=== PATIENT | male | born 1950 | race Caucasian/White ===

== ENCOUNTER 2019-04-22 14:27 | Emergency (ER) | payer OTHER ==
[2019-04-22] MEDS ORDERED: FUROSEMIDE 10 MG/ML 4ML VIAL ONE (15:44)
[2019-04-22 15:48] LABS: BASOPHILS % (AUTO) 0.8 % (0.0-5.0); EOSINOPHILS % (AUTO) 5.5 % (0.0-8.0); HEMATOCRIT 37.4 % (42-54); LYMPHOCYTES % (AUTO) 20.8 % (21.0-51.0); MEAN CORPUSCULAR HEMOGLOBIN 28.9 pg (27.0-33.0); MEAN CORPUSCULAR HGB CONC 32.4 g/dL (32.0-36.0); MEAN CORPUSCULAR VOLUME 89.3 fL (79-99); MONOCYTES % (AUTO) 7.1 % (3.0-13.0); NEUTROPHILS % (AUTO) 65.1 % (40.0-77.0); PLATELET COUNT (AUTO) 267 K/uL (130-400); RED BLOOD CELL COUNT(AUTO) 4.19 MIL/uL (4.50-6.20); RED CELL DISTRIBUTION WIDTH 14.1 % (11.0-15.5); WHITE BLOOD COUNT (AUTO) 9.6 K/uL (4.8-10.8)
[2019-04-22 15:56] LABS: APPEARANCE,URINE Clear (CLEAR); BILIRUBIN,URINE Negative (NEGATIVE); COLOR,URINE Yellow (YELLOW); GLUCOSE, URINE (UA) >=1000 mg/dL (NEGATIVE); KETONES,URINE Negative (NEGATIVE); LEUKOCYTE ESTERASE ,URINE Negative (NEGATIVE); NITRATE,URINE Negative (NEGATIVE); OCCULT BLOOD,URINE Negative (NEGATIVE); PH,URINE 7.5 (5.0-8.0); PROTEIN,URINE Negative (NEGATIVE)
[2019-04-22 15:58] LABS: POTASSIUM 4.8 mmol/L (3.5-5.1)
[2019-04-22 16:02] LABS: ALBUMIN 3.8 g/dL (3.5-5.0); BILIRUBIN,DIRECT 0.2 mg/dL (0.0-0.3); BILIRUBIN,TOTAL 0.7 mg/dL (0.2-1.0); TOTAL PROTEIN, SERUM 6.5 g/dL (6.0-8.3)
[2019-04-22 16:06] LABS: BACTERIA,URINE None Seen /HPF (None Seen); RBC,URINE None Seen /HPF (0-1); SQUAMOUS EPITHELIAL CELL,UR None Seen /HPF (0-2); WBC,URINE 0-1 /HPF (0-1)
[2019-04-22 16:52] LABS: B-TYPE NATRIURETIC PEPTIDE 68 pg/mL (0-100)
== END 2019-04-22 19:54 | disposition home or self-care (01) ==
LOC: EDH 14:27
DX: R60.0 Localized edema (principal); E11.9 Type 2 diabetes mellitus without complications; I10 Essential (primary) hypertension; F31.9 Bipolar disorder, unspecified
CPT/HCPCS: 36415; 80048; 80076; 81001; 83880; 84484; 85025; 85378; 93005; 93970; 96374; 99285; J1940

== ENCOUNTER 2019-07-31 11:54 | Inpatient (IN) | payer OTHER ==
[~2019-07-31] VITALS: Ht 180.3 cm; Wt 102.1 kg
[2019-07-31 12:24] LABS: APPEARANCE,URINE Clear (CLEAR); BILIRUBIN,URINE Negative (NEGATIVE); COLOR,URINE Yellow (YELLOW); GLUCOSE, URINE (UA) >=1000 mg/dL (NEGATIVE); KETONES,URINE Negative (NEGATIVE); LEUKOCYTE ESTERASE ,URINE Negative (NEGATIVE); NITRATE,URINE Negative (NEGATIVE); OCCULT BLOOD,URINE Negative (NEGATIVE); PH,URINE 6.5 (5.0-8.0); PROTEIN,URINE Negative (NEGATIVE); UROBILINOGEN,URINE 0.2 mg/dL (0.2-1.0)
[2019-07-31 12:28] LABS: BASOPHILS % (AUTO) 0.6 % (0.0-5.0); EOSINOPHILS % (AUTO) 2.1 % (0.0-8.0); HEMATOCRIT 42.7 % (42-54); LYMPHOCYTES % (AUTO) 12.6 % (21.0-51.0); MEAN CORPUSCULAR HGB CONC 32.6 g/dL (32.0-36.0); MONOCYTES % (AUTO) 7.7 % (3.0-13.0); NEUTROPHILS % (AUTO) 76.1 % (40.0-77.0); PLATELET COUNT (AUTO) 227 K/uL (130-400)
[2019-07-31] MEDS ORDERED: KETOROLAC TROMETHAMINE 15MG/ML ONE (12:28)
[2019-07-31] MEDS ORDERED: FLUCONAZOLE 100 MG TAB ONE (12:28)
[2019-07-31 12:37] LABS: BACTERIA,URINE None Seen /HPF (None Seen); RBC,URINE None Seen /HPF (0-1); SQUAMOUS EPITHELIAL CELL,UR 0-2 /HPF (0-2); WBC,URINE None Seen /HPF (0-1); YEAST,URINE BUDDING Moderate /HPF (None Seen)
[2019-07-31 12:41] LABS: CREATININE 1.3 mg/dL (0.5-1.5)
[2019-07-31 12:43] LABS: ALBUMIN 2.6 g/dL (3.5-5.0); BILIRUBIN,TOTAL 0.3 mg/dL (0.2-1.0); TOTAL PROTEIN, SERUM 5.9 g/dL (6.0-8.3)
[2019-07-31] MEDS ORDERED: INSULIN HUMULIN R 100 UNIT/ML 3ML ONE (12:55)
[2019-07-31] MEDS ORDERED: SODIUM CHLORIDE 0.9% 1000ML 1,000 ML IV ONE ×3 (12:55→15:11)
[2019-07-31 13:09] LABS: PHOSPHORUS 3.2 mg/dL (2.5-4.9)
[2019-07-31] MEDS ORDERED: ONDANSETRON HCL 4 MG/2 ML VIAL IV PRN (14:45)
[2019-07-31] MEDS ORDERED: SODIUM CHLORIDE 0.9% 1000ML 1,000 ML IV SCH (14:45)
[2019-07-31] MEDS ORDERED: NITROGLYCERIN 0.4 MG SL TAB SL PRN (14:45)
[2019-07-31] MEDS ORDERED: ACETAMINOPHEN 325 MG TAB PO PRN (14:45)
[2019-07-31] MEDS ORDERED: LORAZEPAM 2 MG/ML 1 ML VIAL IVP ONE (15:15)
[2019-07-31] MEDS ORDERED: CEFAZOLIN SODIUM 1 GM VIAL ONE (15:16)
[2019-07-31] MEDS ORDERED: LORAZEPAM 2 MG/ML 1 ML VIAL ONE (15:19)
[2019-07-31] MEDS ORDERED: INSULIN HUMULIN R 100 UNIT/ML 3ML SQ SCH (18:00)
[2019-07-31 18:08] VITALS: BP 163/77
[2019-07-31] MEDS ORDERED: VANCOMYCIN PROTOCOL PER PHARMACY IV SCH (18:30)
[2019-07-31 19:08] LABS: HEMOGLOBIN A1C 13.9 % (4.0-6.0)
[2019-07-31 19:09] LABS: CREATININE 0.9 mg/dL (0.5-1.5); POTASSIUM 4.2 mmol/L (3.5-5.1)
[2019-07-31] MEDS ORDERED: COMPOUND IV REFRIGERATED 1 EACH IVSOLN MISC PRN (19:45)
[2019-07-31 20:00] VITALS: BP 159/83
--- NOTE | 2019-07-31 20:07 | NUR ---
KENRICK Chambers Director Instructional Material,pt states he 's hungry.No diet ordered.
[2019-07-31] MEDS: FAMOTIDINE/PF 20 MG/2 ML VIAL IV SCH (20:50)
[2019-07-31] MEDS: INSULIN GLARGINE 100 UNITS/ML 10 ML VIAL SQ SCH (20:51)
[2019-07-31] MEDS: INSULIN HUMULIN R 100 UNIT/ML 3ML SQ SCH ×2 (20:52→22:13)
[2019-07-31] MEDS ORDERED: KETOCONAZOLE 15 GM CREAM.GM. TP SCH (21:00)
[2019-07-31] MEDS ORDERED: TERBINAFINE HCL 15 GM TUBE TP SCH (21:00)
[2019-07-31 21:15] LABS: CREATININE 0.9 mg/dL (0.5-1.5); POTASSIUM 3.7 mmol/L (3.5-5.1)
[2019-07-31] MEDS: TERBINAFINE HCL 15 GM TUBE TP SCH (21:21)
[2019-07-31] MEDS: VANCOMYCIN 1.5 GM in SODIUM CHLORIDE 0.9% 250 ML IV SCH ×2 (21:23→21:27)
--- NOTE | 2019-07-31 22:06 | NUR ---
BLOOD SUGAR Pt.s blood sugar 380,pt just had his clear liquids.LAntus and sliding scale given.
[2019-07-31] MEDS: CEFAZOLIN SODIUM 1 GM VIAL IVP SCH (23:29)
[2019-07-31] MEDS: FLUCONAZOLE 200 MG/NS 100 ML 100 ML IV SCH (23:29)
[2019-08-01] VITALS (7 sets, daily range): BP systolic 132–160; BP diastolic 63–87
[2019-08-01] MEDS: INSULIN HUMULIN R 100 UNIT/ML 3ML SQ SCH ×8 (00:35→21:57)
[2019-08-01 01:21] LABS: CREATININE 0.8 mg/dL (0.5-1.5); POTASSIUM 3.5 mmol/L (3.5-5.1)
[2019-08-01] MEDS: SODIUM CHLORIDE 0.9% 1000ML 1,000 ML IV SCH ×3 (03:45→20:44)
--- NOTE | 2019-08-01 05:14 | NUR ---
REFUSED Pt refusing blood drawn,states,"I'm doing fine,I came in becaused my blood sugar was high,now it's 83,I'm fine now".Explained to him need for test,labs.He said he did'nt want it.
[2019-08-01] MEDS: CEFAZOLIN SODIUM 1 GM VIAL IVP SCH ×3 (05:50→21:58)
[2019-08-01] MEDS: FAMOTIDINE/PF 20 MG/2 ML VIAL IV SCH ×2 (08:34→20:37)
[2019-08-01] MEDS: VANCOMYCIN 1.5 GM in SODIUM CHLORIDE 0.9% 250 ML IV SCH ×2 (08:34→20:40)
[2019-08-01] MEDS: ENOXAPARIN SODIUM 30 MG/0.3 ML SQ SCH (08:35)
[2019-08-01] MEDS: TERBINAFINE HCL 15 GM TUBE TP SCH ×2 (08:49→20:49)
[2019-08-01] MEDS ORDERED: FLUCONAZOLE 200 MG/NS 100 ML 100 ML IV SCH (09:00)
--- NOTE | 2019-08-01 10:08 | NUR ---
CONSULT CALLED INTO DR. MENDEZ OFFICE
--- NOTE | 2019-08-01 10:12 | NUR ---
SPOKE WITH DR. CHESTER MADE AWARE OF NEW CONSULT. WILL SEE PATIENT LATER TODAY
--- NOTE | 2019-08-01 11:17 | NUR ---
INITIAL Patient lives at [facility], [phone]. Emergency contact is sister, Nimco Pedro, [phone] and brother in law, Rigoberto Pedro, [phone]. No home services. DME: nebulizer, BPM, shower chair. Patient is able to complete ADL's independent but as per sister, has required assistance recently. ARACELI spoke to Sanchez Fulton, front desk specialist of [facility] and he stated that patient has refused to bathe for the past 5 months. Patient is able to drive. PCP is Dr. Flo Moy. Pharmacy is [facility] or [facility] DCP is back to [facility] when ready for discharge. Sister would like patient to go to shelter for additional care. SW attempted to contact [facility] Journal[facility] to verify if patient is Service Connected but there was no answer. SW will follow up. Addendum: 08/01/19 at 1140 by ANNELIESE DHILLON Amended: Links added. Addendum: 08/01/19 at 1152 by ANNELIESE KOWALSKI SS Correction on MD and pharmacy Patient's PCP is [facility] and patient only uses [facility] as per sister.
--- NOTE | 2019-08-01 12:28 | NUR ---
SPOKE WITH DR. MENDEZ STATED PATIENT CAN BE SEEN AN OUTPATIENT. DR. KAMARA MADE AWARE
--- NOTE | 2019-08-01 13:24 | NUR ---
RD NOTIFICATION Pt admitted for Hyperglycemia, Hx of DM. Pt tolerating GI Soft bland diet with no report of GI distress, Good PO intake. Recommend to continue current diet order. RD provided Diabetes nutrition education. Pt reports cough when drinking cold beverages. RD to continue to monitor. Please notify RD as additional nutrition concerns arise. Thank you. Addendum: 08/01/19 at [address] RD Amended: Links added.
--- NOTE | 2019-08-01 13:27 | NUR ---
NUTRITION EDUCATION ALFA provided Diabetes nutrition education to Pt. ALFA provided reference materials and handouts. ALFA answered all Pt questions. Pt verbalized understanding. Addendum: 08/01/19 at [address] Amended: Links added.
--- NOTE | 2019-08-01 13:53 | NUR ---
[facility] Service Connection SW contacted [facility] Inpatient Rough Rice Grader, Nani Cage, to verify that patient is Service Connected for SNF. She informed SW that patient is Service Connected. MANOLO, Rebecca Wilson, made aware.
--- NOTE | 2019-08-01 15:59 | NUR ---
STATUS SECONDARY REVIEW DONE. UNABLE TO FIND INPT IQ CRITERIA. NOTIFIED CM.
[2019-08-01] MEDS ORDERED: INSLAN SQ (17:05)
[2019-08-01] MEDS ORDERED: ALOG25TA2 PO (17:05)
[2019-08-01] MEDS ORDERED: ATOR10 PO (17:05)
[2019-08-01] MEDS ORDERED: FURO20TA4 PO (17:05)
[2019-08-01] MEDS ORDERED: LITH300C3 PO (17:05)
[2019-08-01] MEDS ORDERED: ASPI-556 PO (17:05)
[2019-08-01] MEDS ORDERED: PANT40TA54 PO (17:05)
[2019-08-01] MEDS: GUAIFENESIN-DM 200/20 MG 10 ML PO PRN (20:37)
[2019-08-01] MEDS: FLUCONAZOLE 200 MG/NS 100 ML 100 ML IV SCH ×2 (20:39→21:55)
[2019-08-01] MEDS: INSULIN GLARGINE 100 UNITS/ML 10 ML VIAL SQ SCH (20:42)
[2019-08-02] MEDS: GUAIFENESIN-DM 200/20 MG 10 ML PO PRN ×2 (03:30→10:01)
[2019-08-02] MEDS: SODIUM CHLORIDE 0.9% 1000ML 1,000 ML IV SCH ×3 (03:30→21:13)
--- NOTE | 2019-08-02 03:51 | NUR ---
COUGH Pt c/o dry cough,on Droplet precautions.Medicated with Guiafenessin.
[2019-08-02 04:29] VITALS: BP 169/83
--- NOTE | 2019-08-02 05:08 | NUR ---
REFUSED Pt refused lab drawn again this am.Explained labs ordered per .
[2019-08-02] MEDS: CEFAZOLIN SODIUM 1 GM VIAL IVP SCH ×3 (05:56→23:00)
[2019-08-02] MEDS: INSULIN HUMULIN R 100 UNIT/ML 3ML SQ SCH ×7 (06:23→21:07)
[2019-08-02 07:30] VITALS: BP 153/76
[2019-08-02 08:25] LABS: EOSINOPHILS % (AUTO) 4.2 % (0.0-8.0); HEMATOCRIT 43.5 % (42-54); MEAN CORPUSCULAR HEMOGLOBIN 28.6 pg (27.0-33.0); MEAN CORPUSCULAR HGB CONC 32.6 g/dL (32.0-36.0); MEAN CORPUSCULAR VOLUME 87.7 fL (79-99); MONOCYTES % (AUTO) 7.8 % (3.0-13.0); NEUTROPHILS % (AUTO) 66.1 % (40.0-77.0); PLATELET COUNT (AUTO) 211 K/uL (130-400); RED BLOOD CELL COUNT(AUTO) 4.96 MIL/uL (4.50-6.20); RED CELL DISTRIBUTION WIDTH 13.2 % (11.0-15.5); WHITE BLOOD COUNT (AUTO) 6.9 K/uL (4.8-10.8)
[2019-08-02 08:49] LABS: BILIRUBIN,TOTAL 0.3 mg/dL (0.2-1.0); CREATININE 0.8 mg/dL (0.5-1.5); POTASSIUM 3.6 mmol/L (3.5-5.1)
[2019-08-02 08:50] LABS: ALBUMIN 2.1 g/dL (3.5-5.0); TOTAL PROTEIN, SERUM 5.3 g/dL (6.0-8.3)
--- NOTE | 2019-08-02 09:20 | NUR ---
DR. KAMARA CALLED RE; ANTIBIOTICS PT IS ON 3 ANTIBIOTICS ANY PLANS TO D/C ONE OF THEM? STATES CONTINUE ALL FOR TODAY AND I WILL REVIEW THEM TOMORROW AND I WILL DECIDE.
[2019-08-02] MEDS: FAMOTIDINE/PF 20 MG/2 ML VIAL IV SCH ×2 (09:46→21:04)
[2019-08-02] MEDS: VANCOMYCIN 1.5 GM in SODIUM CHLORIDE 0.9% 250 ML IV SCH ×2 (09:46→21:09)
[2019-08-02] MEDS: ENOXAPARIN SODIUM 30 MG/0.3 ML SQ SCH (09:48)
[2019-08-02] MEDS: TERBINAFINE HCL 15 GM TUBE TP SCH ×2 (09:48→21:05)
[2019-08-02 10:58] VITALS: BP 158/75
[2019-08-02] MEDS ORDERED: INSULIN HUMULIN R 100 UNIT/ML 3ML SQ SCH (11:30)
--- NOTE | 2019-08-02 12:22 | NUR ---
CM NOTE NEW ORDER FOR SNF FOR PHYSICAL THERAPY. MEET WITH PATIENT IN ROOM. PER PATIENT, OK TO CALL SISTER DERRICK AND TALK TO HER REGARDING SNF REFERRAL. OPTIONS IN NETWORK WITH [facility] FOR SNF GIVEN TO PATIENT AND SISTER OVER PHONE. VERBAL CONSENT FOR [facility]. CLINICALS AND [facility] FAXED AND CONFIRMED RECEIVED. PENDING AUTHORIZATION, WILL FOLLOW UP ACCORDINGLY.
--- NOTE | 2019-08-02 13:37 | NUR ---
Diabetes Nutrition Education Completed. Pt having a history of non-compliance. Further diet instructions provided. Addendum: 08/02/19 at [address] Amended: Links added.
--- NOTE | 2019-08-02 15:09 | NUR ---
CM NOTE/AMBER DECLINED PER JACEK AT [facility], PATIENT DENIED. MEET WITH PATIENT IN ROOM, PER PATIENT, DOES NOT WANT TO GO TO OTHER OPTION FACILITY, [facility] BECAUSE PER PATIENT " I HAD MY MOTHER THEIR AND THEY NEARLY KILLED HER, I WOULDNT SEND A DOG THERE". PATIENT DECLINES ANY OTHER SNF. PER PATIENT, I CAN GO BACK TO MY [facility] AT [facility] AND BE HAPPY THERE. PATIENT OK WITH ME CALLING SISTER AND DISCUSSING DISCHARGE PLANNING. WILL CALL DERRICK, SIBLING.
--- NOTE | 2019-08-02 15:45 | NUR ---
[facility] consult Patient assessed as ordered. No open wounds identified. Report given to patient's nurse, Alistair LAST.
[2019-08-02 15:48] VITALS: BP 138/71
--- NOTE | 2019-08-02 16:39 | NUR ---
VA Psychologist ARACELI received a call from [facility] PsychologistJagdish this morning. He called to follow up on discharge plans for patient. VA Psychologist stated that patient's sister had called and was concerned that patient may be discharged back to private assisted living. SW informed VA Psychologist that patient's sister had voiced her concerns about patient returning to Assisted Living. SW provided VA Psychologist with CM's contact information. [facility] Psychologist stated that he had just called to make SW aware of patient's sister's concerns. CM, Rebecca Wilson, made aware.
--- NOTE | 2019-08-02 17:50 | NUR ---
MANOLO MEZA, SIBLING, CALLED ME. SIBLING MADE AWARE OF DENIAL AT SNF. PATIENT CONTINUES TO REFUSE TREATMENT AT TIMES. PER SIBLING, SHE DOES NOT WANT HIM TO RETURN TO ASSISTIVE LIVING BECAUSE HE IS NOT CARED FOR PROPERLY THERE. SIBLING INTERESTED IN OTHER ASSISTIVE LIVING FACILITIES OR PRIVATE RETIREMENT, WILL GIVE INFORMATION REGARDING THESE. SIBLING CONCERNED THAT PATIENT IS NOT BEING MONITORED WELL THERE AND MISSES HIS MEDICATION/INSULIN ADMINISTRATION. PATIENT HAS HISTORY OF NON COMPLIANCE AND AGITATION AT TIMES. PATIENT IS AAOX3. INFORMED SIBLING THAT I CANNOT SEND HIS PHI TO ANOTHER FACILITY UNTIL I HAVE CONSENT FROM PATIENT. SIBLING WANTS ME TO CALL [facility] AND SEE WHAT OTHER SERVICES HE CAN HAVE, WILL CONTACT TYLOR FROM [facility] AND FOLLOW UP FOR OTHER COMMUNITY RESOURCES AVAILABLE. CATHERINE LAST AND DR. KAMARA MADE AWARE OF CONVERSATIONS BETWEEN SIBLING/PATIENT AND I.
[2019-08-02 19:59] VITALS: BP 159/84
[2019-08-02] MEDS ORDERED: INSULIN GLARGINE 100 UNITS/ML 10 ML VIAL SQ SCH (21:00)
[2019-08-02] MEDS: LITHIUM CARBONATE 150 MG CAPSULE PO SCH (21:04)
[2019-08-02] MEDS: ATORVASTATIN CALCIUM 20 MG TABLET PO SCH (21:04)
[2019-08-02] MEDS: FLUCONAZOLE 200 MG/NS 100 ML 100 ML IV SCH ×2 (21:04→23:39)
--- NOTE | 2019-08-02 23:30 | NUR ---
REFUSED MEDICATION PT REFUSING IV TO BE CONNECTED TO ANYTHING, STATES "I JUST WANT TO SLEEP, JUST DISCONNECT ME I DON'T NEED THIS I'M GOING HOME TOMORROW". EDUCATED IMPORTANCE OF ANTIBIOTIC TREATMENTS, CONTINUES TO REFUSE, STATES "I'LL TAKE RESPONSIBILITY FOR IT, BUT I DON'T NEED IT." UNABLE TO ADMINISTER DIFLUCAN OR ANCEF ORDERED BY .
[2019-08-02 23:49] VITALS: BP 149/91
[2019-08-03] MEDS: LACTULOSE 20 GM/30 ML UDCUP PO PRN (03:19)
[2019-08-03 03:44] VITALS: BP 157/79
[2019-08-03] MEDS: CEFAZOLIN SODIUM 1 GM VIAL IVP SCH ×3 (05:49→16:39)
--- NOTE | 2019-08-03 06:02 | NUR ---
REFUSING LAB WORK WAREHOUSE SHIPPING SUPERVISOR MADE NURSE AWARE PT IS REFUSING LAB DRAW THIS MORNING. PT CONTINUES TO STATE " THE DOCTOR TOLS ME I'M GOING HOME THIS MORNING SO I DON'T NEED LAB WORK".
[2019-08-03] MEDS: INSULIN HUMULIN R 100 UNIT/ML 3ML SQ SCH ×8 (06:49→22:01)
[2019-08-03 07:31] VITALS: BP 161/80
[2019-08-03] MEDS: GUAIFENESIN-DM 200/20 MG 10 ML PO PRN (08:40)
[2019-08-03] MEDS: LITHIUM CARBONATE 150 MG CAPSULE PO SCH ×2 (08:40→19:41)
[2019-08-03] MEDS: FUROSEMIDE 20 MG TABLET PO SCH (08:40)
[2019-08-03] MEDS: ASPIRIN 81 MG EC TAB PO SCH (08:40)
[2019-08-03] MEDS: ENOXAPARIN SODIUM 30 MG/0.3 ML SQ SCH (08:41)
[2019-08-03] MEDS: PANTOPRAZOLE SODIUM 40 MG TABLET.DR PO SCH (08:41)
[2019-08-03] MEDS: FAMOTIDINE/PF 20 MG/2 ML VIAL IV SCH ×2 (08:41→19:41)
[2019-08-03] MEDS: VANCOMYCIN 1.5 GM in SODIUM CHLORIDE 0.9% 250 ML IV SCH ×2 (08:41→21:57)
[2019-08-03] MEDS: TERBINAFINE HCL 15 GM TUBE TP SCH ×2 (08:42→19:42)
[2019-08-03] MEDS: SODIUM CHLORIDE 0.9% 1000ML 1,000 ML IV SCH (08:42)
[2019-08-03 10:46] VITALS: BP 132/70
--- NOTE | 2019-08-03 14:30 | NUR ---
PER MIGELRN,Waste Management Recycling Technician, patient prefers to go home with Home Health.Recommending rollator and with PT home Health 3w2,2w2 total of [address] Walton approval. Addendum: 08/03/19 at 1432 by GUSTABO MILLAN, PT PT Amended: Links added.
--- NOTE | 2019-08-03 15:09 | NUR ---
CM NOTE/AMBER DECLINED PER JACEK AT [facility], PATIENT DENIED. MEET WITH PATIENT IN ROOM, PER PATIENT, DOES NOT WANT TO GO TO OTHER OPTION FACILITY, [facility] BECAUSE PER PATIENT " I HAD MY MOTHER THEIR AND THEY NEARLY KILLED HER, I WOULDNT SEND A DOG THERE". PATIENT DECLINES ANY OTHER SNF. PER PATIENT, I CAN GO BACK TO MY ASSISTIVE LIVING AT [facility] AND BE HAPPY THERE. PATIENT OK WITH ME CALLING SISTER AND DISCUSSING DISCHARGE PLANNING. WILL CALL JESUS MEZA. Addendum: 08/03/19 at 1801 by MIGEL NO RN CM ERROR IN TIME AND DATE OF NOTE.
[2019-08-03 15:39] VITALS: BP 160/67
--- NOTE | 2019-08-03 18:07 | NUR ---
CM NOTE MEET WITH PATIENT IN ROOM REGARDING NEW ORDER FOR HH. PER PATIENT, HE WANTS VA TO BE USED AND NOT HIS MEDICARE SECONDARY PLAN. TYLOR FROM [place], FLOTATION OPERATOR, CONTACTED. CLINICALS AND REFERRAL FOR HH FAXED AND CONFIRMED RECEIVED. WILL FOLLOW UP FOR STATUS OF HH. PATIENT AND SIBLING, DERRICK, WELL PRIMARY NURSE, MIGUELANGEL LAST, MADE AWARE OF PENDING HH EVAL STATUS FROM [place].
[2019-08-03] MEDS: ATORVASTATIN CALCIUM 20 MG TABLET PO SCH (19:41)
[2019-08-03] MEDS: FLUCONAZOLE 200 MG/NS 100 ML 100 ML IV SCH (19:47)
[2019-08-03 20:00] VITALS: BP 129/66
[2019-08-03] MEDS ORDERED: INSULIN GLARGINE 100 UNITS/ML 10 ML VIAL SQ SCH (21:00)
[2019-08-03] MEDS: INSULIN GLARGINE 100 UNITS/ML 10 ML VIAL SQ SCH (22:02)
[2019-08-04 00:45] VITALS: BP 169/64
[2019-08-04 04:46] VITALS: BP 146/64
[2019-08-04] MEDS: CEFAZOLIN SODIUM 1 GM VIAL IVP SCH ×3 (04:58→23:06)
--- NOTE | 2019-08-04 05:45 | NUR ---
labs patient refusing blood draw specimen this am , explained to patient importance of blood work as ordered by margarito, patients states " i dont want to be stuck now" maybe later
[2019-08-04] MEDS: INSULIN HUMULIN R 100 UNIT/ML 3ML SQ SCH ×7 (06:39→21:17)
[2019-08-04] MEDS: FAMOTIDINE/PF 20 MG/2 ML VIAL IV SCH ×2 (08:48→21:09)
[2019-08-04] MEDS: ASPIRIN 81 MG EC TAB PO SCH (08:48)
[2019-08-04] MEDS: LITHIUM CARBONATE 150 MG CAPSULE PO SCH ×2 (08:48→21:09)
[2019-08-04] MEDS: FUROSEMIDE 20 MG TABLET PO SCH (08:48)
[2019-08-04] MEDS: PANTOPRAZOLE SODIUM 40 MG TABLET.DR PO SCH (08:48)
[2019-08-04] MEDS: ENOXAPARIN SODIUM 30 MG/0.3 ML SQ SCH (08:51)
[2019-08-04] MEDS: TERBINAFINE HCL 15 GM TUBE TP SCH ×2 (08:51→21:10)
[2019-08-04 08:59] VITALS: BP 150/73
[2019-08-04] MEDS: VANCOMYCIN 1.5 GM in SODIUM CHLORIDE 0.9% 250 ML IV SCH ×2 (09:13→21:09)
--- NOTE | 2019-08-04 10:46 | NUR ---
CM NOTE UPDATED PT NOTES FAXED AND CONFIRMED RECEIVED WITH TYLOR, PENDING HOME HEALTH TO BE ASSIGNED BY [facility].
[2019-08-04 11:48] VITALS: BP 138/57
[2019-08-04 16:00] VITALS: BP 131/67
[2019-08-04 20:00] VITALS: BP 152/83
[2019-08-04] MEDS: FLUCONAZOLE 200 MG/NS 100 ML 100 ML IV SCH (21:09)
[2019-08-04] MEDS: ATORVASTATIN CALCIUM 20 MG TABLET PO SCH (21:10)
[2019-08-04] MEDS: INSULIN GLARGINE 100 UNITS/ML 10 ML VIAL SQ SCH (21:18)
[2019-08-05] VITALS (7 sets, daily range): BP systolic 138–164; BP diastolic 67–80
[2019-08-05] MEDS: CEFAZOLIN SODIUM 1 GM VIAL IVP SCH (05:56)
[2019-08-05] MEDS: INSULIN HUMULIN R 100 UNIT/ML 3ML SQ SCH ×7 (06:17→21:26)
--- NOTE | 2019-08-05 08:00 | NUR ---
cm note Nani with [facility] called and states working on Home health for pt. will let cm know when approved.
[2019-08-05] MEDS: PANTOPRAZOLE SODIUM 40 MG TABLET.DR PO SCH (09:11)
[2019-08-05] MEDS: FUROSEMIDE 20 MG TABLET PO SCH (09:11)
[2019-08-05] MEDS: ASPIRIN 81 MG EC TAB PO SCH (09:11)
[2019-08-05] MEDS: ENOXAPARIN SODIUM 30 MG/0.3 ML SQ SCH (09:12)
[2019-08-05] MEDS: TERBINAFINE HCL 15 GM TUBE TP SCH ×2 (09:12→19:12)
[2019-08-05] MEDS: FAMOTIDINE/PF 20 MG/2 ML VIAL IV SCH ×2 (09:12→09:16)
[2019-08-05] MEDS: LITHIUM CARBONATE 150 MG CAPSULE PO SCH ×2 (09:56→19:30)
[2019-08-05] MEDS: VANCOMYCIN 1.5 GM in SODIUM CHLORIDE 0.9% 250 ML IV SCH (09:57)
--- NOTE | 2019-08-05 11:00 | NUR ---
cm note received call from Fanta AT [facility], [phone] requesting that we use his medicare and switch to [facility], in order for pt to go to [facility]. informed fanta, this cm will discuss dc plan with pt and will make referrals per pt request. pt states that he prefers to use [place] coverage, instead of VA does not want issues with copays, etc, requests cm wait for approval from [place]. informed him we are still pending the approva. pt verbalizes understanding.
--- NOTE | 2019-08-05 16:13 | NUR ---
[facility] Follow up - HOME HEALTH SW contacted Nani Cage, [facility] Inpatient SW, to follow up on status of Home Health needed for patient. Nani stated that PA was just working on order. ARACELI informed Nani that patient is ready for discharge once home health is arranged. Nani asked ARACELI to call her back in a few minutes so they could work on it. MANOLO, Shaan Kellogg, made aware.
--- NOTE | 2019-08-05 16:41 | NUR ---
HOME HEALTH/DME - [facility] ARACELI contacted Nani Cage, [place] Inpatient Contract SW to follow up on status on Home Health and walker for patient. She informed ARACELI that PA was presently working on it but arrangements would not be ready for patient to be discharged today. Shaan FRENCH made aware. Patient and family want to use [place] for arrangements rather than [place].
[2019-08-05] MEDS: NYSTATIN 15 GM POWDER TP SCH ×2 (17:41→19:30)
[2019-08-05] MEDS: LACTULOSE 20 GM/30 ML UDCUP PO PRN (19:30)
[2019-08-05] MEDS: FLUCONAZOLE 200 MG/NS 100 ML 100 ML IV SCH (19:30)
[2019-08-05] MEDS: ATORVASTATIN CALCIUM 20 MG TABLET PO SCH (19:30)
[2019-08-05] MEDS: INSULIN GLARGINE 100 UNITS/ML 10 ML VIAL SQ SCH (21:27)
[2019-08-06 04:27] VITALS: BP 158/101
[2019-08-06] MEDS: INSULIN HUMULIN R 100 UNIT/ML 3ML SQ SCH ×7 (07:30→20:46)
[2019-08-06 08:00] VITALS: BP 134/63
[2019-08-06] MEDS: ASPIRIN 81 MG EC TAB PO SCH (08:37)
[2019-08-06] MEDS: FAMOTIDINE/PF 20 MG/2 ML VIAL IV SCH ×2 (08:37→20:44)
[2019-08-06] MEDS: PANTOPRAZOLE SODIUM 40 MG TABLET.DR PO SCH (08:38)
[2019-08-06] MEDS: FUROSEMIDE 20 MG TABLET PO SCH (08:38)
[2019-08-06] MEDS: ENOXAPARIN SODIUM 30 MG/0.3 ML SQ SCH (08:40)
[2019-08-06] MEDS: TERBINAFINE HCL 15 GM TUBE TP SCH ×2 (09:00→20:46)
[2019-08-06] MEDS: LITHIUM CARBONATE 150 MG CAPSULE PO SCH ×2 (11:30→20:44)
[2019-08-06] MEDS: NYSTATIN 15 GM POWDER TP SCH ×2 (11:32→20:46)
[2019-08-06 11:45] VITALS: BP 144/63
[2019-08-06 16:00] VITALS: BP 182/81
[2019-08-06 19:00] VITALS: BP 142/73
[2019-08-06] MEDS: ATORVASTATIN CALCIUM 20 MG TABLET PO SCH (20:44)
[2019-08-06] MEDS: FLUCONAZOLE 200 MG/NS 100 ML 100 ML IV SCH (20:44)
[2019-08-06] MEDS: INSULIN GLARGINE 100 UNITS/ML 10 ML VIAL SQ SCH (20:45)
[2019-08-06 23:36] VITALS: BP 140/65
[2019-08-07] MEDS: GUAIFENESIN-DM 200/20 MG 10 ML PO PRN (00:56)
[2019-08-07 03:47] VITALS: BP 147/95
[2019-08-07] MEDS: INSULIN HUMULIN R 100 UNIT/ML 3ML SQ SCH ×7 (06:14→21:16)
[2019-08-07 07:30] VITALS: BP 143/78
[2019-08-07] MEDS: TERBINAFINE HCL 15 GM TUBE TP SCH ×2 (09:00→21:19)
[2019-08-07] MEDS: FAMOTIDINE/PF 20 MG/2 ML VIAL IV SCH ×2 (09:37→21:18)
[2019-08-07] MEDS: LITHIUM CARBONATE 150 MG CAPSULE PO SCH ×2 (09:38→21:18)
[2019-08-07] MEDS: ASPIRIN 81 MG EC TAB PO SCH (09:38)
[2019-08-07] MEDS: FUROSEMIDE 20 MG TABLET PO SCH (09:38)
[2019-08-07] MEDS: PANTOPRAZOLE SODIUM 40 MG TABLET.DR PO SCH (09:38)
[2019-08-07] MEDS: NYSTATIN 15 GM POWDER TP SCH ×2 (09:39→21:18)
[2019-08-07] MEDS: ENOXAPARIN SODIUM 30 MG/0.3 ML SQ SCH (09:41)
[2019-08-07 11:00] VITALS: BP 129/67
[2019-08-07 16:00] VITALS: BP 147/95
[2019-08-07 20:00] VITALS: BP 152/64
[2019-08-07] MEDS ORDERED: INSULIN GLARGINE 100 UNITS/ML 10 ML VIAL SQ SCH (21:00)
[2019-08-07] MEDS: ATORVASTATIN CALCIUM 20 MG TABLET PO SCH (21:18)
[2019-08-07] MEDS: FLUCONAZOLE 200 MG/NS 100 ML 100 ML IV SCH (21:18)
[2019-08-07 23:00] VITALS: BP 137/81
[2019-08-08 04:05] VITALS: BP 134/75
--- NOTE | 2019-08-08 04:28 | NUR ---
STATUS Pt slept well.Denies pain or discomfort.
[2019-08-08] MEDS: INSULIN HUMULIN R 100 UNIT/ML 3ML SQ SCH ×7 (05:25→20:20)
--- NOTE | 2019-08-08 05:27 | NUR ---
REFUSED Refused blood to be drawn per tech this am.
[2019-08-08 07:33] VITALS: BP 141/76
[2019-08-08] MEDS: NYSTATIN 15 GM POWDER TP SCH ×2 (09:00→20:16)
[2019-08-08] MEDS: TERBINAFINE HCL 15 GM TUBE TP SCH ×2 (09:00→20:16)
[2019-08-08] MEDS: PANTOPRAZOLE SODIUM 40 MG TABLET.DR PO SCH (10:08)
[2019-08-08] MEDS: ASPIRIN 81 MG EC TAB PO SCH (10:08)
[2019-08-08] MEDS: FUROSEMIDE 20 MG TABLET PO SCH (10:08)
[2019-08-08] MEDS: LITHIUM CARBONATE 150 MG CAPSULE PO SCH ×2 (10:08→19:58)
[2019-08-08] MEDS: FAMOTIDINE/PF 20 MG/2 ML VIAL IV SCH ×2 (10:09→19:57)
[2019-08-08] MEDS: ENOXAPARIN SODIUM 30 MG/0.3 ML SQ SCH (10:12)
[2019-08-08 10:53] VITALS: BP 119/70
--- NOTE | 2019-08-08 11:00 | NUR ---
CM NOTE/[facility] HH REFERRAL PER [facility]YL[facility] AT [facility], PENDING HH ASSIGNMENT AND APPROVAL. WILL FOLLOW UP ACCORDINGLY .
[2019-08-08 15:45] VITALS: BP 131/74
[2019-08-08 19:17] VITALS: BP 118/64
[2019-08-08] MEDS: LACTULOSE 20 GM/30 ML UDCUP PO PRN (19:57)
[2019-08-08] MEDS: ATORVASTATIN CALCIUM 20 MG TABLET PO SCH (19:57)
[2019-08-08] MEDS: FLUCONAZOLE 200 MG/NS 100 ML 100 ML IV SCH (19:58)
[2019-08-08] MEDS ORDERED: INSULIN GLARGINE 100 UNITS/ML 10 ML VIAL SQ SCH (21:00)
[2019-08-08 23:34] VITALS: BP 137/61
--- NOTE | 2019-08-09 02:09 | NUR ---
AGITATED Pt getting agitated due to pt in another room started moaning intermittently,he shouts"Shut up".Pt offerred to be transferred to another room,he refused.He also does not want his door shut.He wanted the other pt.s room be shut closed.
[2019-08-09 03:19] VITALS: BP 145/85
[2019-08-09] MEDS: INSULIN HUMULIN R 100 UNIT/ML 3ML SQ SCH ×6 (06:06→16:31)
[2019-08-09 08:48] VITALS: BP 134/68
[2019-08-09] MEDS: TERBINAFINE HCL 15 GM TUBE TP SCH (09:00)
[2019-08-09] MEDS: ASPIRIN 81 MG EC TAB PO SCH (09:13)
[2019-08-09] MEDS: FUROSEMIDE 20 MG TABLET PO SCH (09:13)
[2019-08-09] MEDS: NYSTATIN 15 GM POWDER TP SCH (09:13)
[2019-08-09] MEDS: PANTOPRAZOLE SODIUM 40 MG TABLET.DR PO SCH (09:13)
[2019-08-09] MEDS: LITHIUM CARBONATE 150 MG CAPSULE PO SCH (09:13)
[2019-08-09] MEDS: FAMOTIDINE/PF 20 MG/2 ML VIAL IV SCH (09:14)
[2019-08-09] MEDS: ENOXAPARIN SODIUM 30 MG/0.3 ML SQ SCH (09:15)
--- NOTE | 2019-08-09 10:12 | NUR ---
CM Note: [place] approved and assign [facility] CM spoke to Nani wright/MAYE pt has approval assigned [facility] . Primary nurse aware. CM to cont to follow up.
[2019-08-09 12:01] VITALS: BP 133/77
[2019-08-09] MEDS ORDERED: INSU100V3 SQ (13:25)
[2019-08-09] MEDS ORDERED: Terbinafine Hcl TP (13:25)
[2019-08-09] MEDS ORDERED: INSLAN SQ (13:25)
--- NOTE | 2019-08-09 15:45 | NUR ---
DISCHARGE DISCHARGE TEACHING PROVIDED TO PATIENT REGARDING RX (REGULAR INSULIN, LANTUS INSULIN, TERBINAFINE CREAM), INSULIN ADMINISTRATION, DIABETES AND NUTRITION, DIABETES MANAGEMENT AT HOME, S/S OF HYPERGLYCEMIA AND HYPOGLYCEMIA. PATIENT VERBALIZED UNDERSTANDING OF DISCHARGE TEACHING. REMOVED 20G IV FROM RIGHT HAND. GIVEN VOUCHER TO OBTAIN PRESCRIPTIONS IN ORDER TO OBTAIN RX TODAY. INFORMED OF SCHEDULED F/U APPTS WITH DR. CHESTER AND DR. MENDEZ. INFORMED THAT PCP'S OFFICE WILL CALL TO MAKE F/U APPT. CALLED [facility] [phone], NO ANSWER AND UNABLE TO LEAVE VOICEMAIL. CALLED [facility] AND WAS TOLD TO TRY TO CALL PATIENTS SISTER DERRICK TO PROCESSOR GRAIN PATIENT. CALLED PATIENTS SISTER DERRICK [phone] AND SHE SAID SHE WOULD BE ABLE TO PROCESSOR GRAIN PATIENT TODAY.
--- NOTE | 2019-08-09 15:50 | NUR ---
CM NOTE ARACELI contacted Sanchez Fulton, local owner operator truck driver of [employer] and informed him that nurse was trying to reach him to provide report because patient was being discharged. Mr. Fulton stated that he did not have anyone to picking table worker patient until 08/10/2019 and he wanted patient to have Home Health. ARACELI explained that patient had home health arranged through [place] as requested by patient and agency was [facility]. Mr. Fulton stated that he had received a call from [facility] staff was was informed that they will provide wound care for patient. Mr. Fulton stated that he wanted halfway for patient. ARACELI informed Mr. Fulton that is was based on MD recommendation. He requested to speak to CM for patient. ARACELI contacted Lilia Fulton and informed her that Mr. Fulton wanted to speak to her about patient.
[2019-08-09 16:43] VITALS: BP 146/80
== END 2019-08-09 18:20 | disposition home health service (06) | DRG 637 ==
LOC: EDH 11:54 → EDHIP 14:35 → OBSVTOIN 14:35 → INTOOBSV 14:35 → 3AH 17:36 → 3DH 08-09 08:28
PROVIDERS: ADMIT Internal Medicine; ATTEND Internal Medicine
DX: E11.10 Type 2 diabetes mellitus with ketoacidosis without coma (principal); G92 Toxic encephalopathy; E11.00 Type 2 diabetes mellitus with hyperosmolarity without nonketotic hyperglycemic-hyperosmolar coma (NKHHC); E11.65 Type 2 diabetes mellitus with hyperglycemia; N47.1 Phimosis; F31.9 Bipolar disorder, unspecified; I10 Essential (primary) hypertension; F42.9 Obsessive-compulsive disorder, unspecified; E88.81 Metabolic syndrome and other insulin resistance; E78.5 Hyperlipidemia, unspecified; E11.42 Type 2 diabetes mellitus with diabetic polyneuropathy; B37.2 Candidiasis of skin and nail; B37.42 Candidal balanitis; Z79.4 Long term (current) use of insulin; Z79.84 Long term (current) use of oral hypoglycemic drugs; Z91.14 Patient's other noncompliance with medication regimen; Z88.8 Allergy status to other drugs, medicaments and biological substances; Z91.19 Patient's noncompliance with other medical treatment and regimen
CPT/HCPCS: 36415; 71045; 74176; 80048; 80053; 80202; 81001; 82010; 82150; 82948; 83036; 83690; 84100; 84145; 85025; 86140; 87040; 87088; 87804; 97039; 99291; G0378; J0690; J1450; J1650; J1815; J1885; J2060; J3370; J3490; J7030; J7050

== ENCOUNTER 2019-08-17 22:40 | Emergency (ER) | payer OTHER ==
[~2019-08-17 22:40] MED LIST: ALOG25TA2 PO; ASPI-556 PO; ATOR10 PO; FURO20TA4 PO; INSLAN SQ; INSU100V3 SQ; LITH300C3 PO; PANT40TA54 PO; Terbinafine Hcl TP
[2019-08-17 23:41] LABS: BASOPHILS % (AUTO) 0.8 % (0.0-5.0); HEMATOCRIT 41.3 % (42-54); MEAN CORPUSCULAR HEMOGLOBIN 28.6 pg (27.0-33.0); MEAN CORPUSCULAR HGB CONC 32.7 g/dL (32.0-36.0); MEAN CORPUSCULAR VOLUME 87.5 fL (79-99); NEUTROPHILS % (AUTO) 99.2 % (40.0-77.0); PLATELET COUNT (AUTO) 284 K/uL (130-400); RED BLOOD CELL COUNT(AUTO) 4.72 MIL/uL (4.50-6.20); RED CELL DISTRIBUTION WIDTH 13.7 % (11.0-15.5); WHITE BLOOD COUNT (AUTO) 10.7 K/uL (4.8-10.8)
[2019-08-17 23:54] LABS: CREATININE 1.1 mg/dL (0.5-1.5)
[2019-08-17 23:58] LABS: ALBUMIN 3.2 g/dL (3.5-5.0); BILIRUBIN,TOTAL 0.3 mg/dL (0.2-1.0); TOTAL PROTEIN, SERUM 6.5 g/dL (6.0-8.3)
[2019-08-18 00:34] LABS: EOSINOPHILS % (MANUAL) 7 % (1-6); LYMPHOCYTES % (MANUAL) 26 % (22-44); MAN.DIFF COMMENT-IMPRESSION MANUAL DIFFERENTIAL; MONOCYTES % (MANUAL) 13 % (2-9); SEGMENTED NEUTROPHILS % 54 % (40-70)
[2019-08-18 00:35] LABS: PLATELET MORPHOLOGY COMMENT ADEQUATE
[2019-08-18 01:00] LABS: APPEARANCE,URINE Clear (CLEAR); BILIRUBIN,URINE Negative (NEGATIVE); COLOR,URINE Yellow (YELLOW); GLUCOSE, URINE (UA) Negative (NEGATIVE); KETONES,URINE Trace mg/dL (NEGATIVE); LEUKOCYTE ESTERASE ,URINE Negative (NEGATIVE); NITRATE,URINE Negative (NEGATIVE); OCCULT BLOOD,URINE Negative (NEGATIVE); PH,URINE 6.5 (5.0-8.0); PROTEIN,URINE Negative (NEGATIVE)
[2019-08-18 01:43] LABS: AMPHET/METH SCREEN,URINE NEGATIVE (NEGATIVE); BARBITURATE SCREEN, URINE NEGATIVE (NEGATIVE); BENZODIAZEPINES SCREEN,URINE NEGATIVE (NEGATIVE); CANNABINOID SCREEN,URINE NEGATIVE (NEGATIVE); COCAINE SCREEN,URINE NEGATIVE (NEGATIVE); OPIATE SCREEN,URINE NEGATIVE (NEGATIVE); PHENCYCLIDINE SCREEN,URINE NEGATIVE (NEGATIVE)
[2019-08-18] MEDS ORDERED: LORAZEPAM 1 MG TABLET ONE (02:10)
== END 2019-08-18 04:53 | disposition home or self-care (01) ==
LOC: EDH 22:40
DX: F31.9 Bipolar disorder, unspecified (principal); I10 Essential (primary) hypertension; E11.9 Type 2 diabetes mellitus without complications; F41.9 Anxiety disorder, unspecified; F42.9 Obsessive-compulsive disorder, unspecified; Z88.1 Allergy status to other antibiotic agents
CPT/HCPCS: 36415; 70450; 80053; 80178; 80305; 81003; 82550; 84484; 85025; 93005

== ENCOUNTER 2019-11-09 14:34 | Inpatient (IN) | payer OTHER ==
[~2019-11-09] VITALS: Ht 180.3 cm; Wt 110.2 kg
[2019-11-09] MEDS ORDERED: INSULIN HUMULIN R 100 UNIT/ML 3ML ONE (17:59)
[2019-11-09] MEDS ORDERED: DEXTROSE 50%-WATER 50 ML DISP.SYRIN IV PRN (20:45)
[2019-11-09] MEDS ORDERED: GLUCAGON 1MG KIT 1 MG ML IM PRN (20:45)
[2019-11-09] MEDS: SODIUM CHLORIDE 0.9% 1000ML 1,000 ML IV SCH (20:45)
[2019-11-09] MEDS ORDERED: ONDANSETRON HCL 4 MG/2 ML VIAL IV PRN (20:45)
[2019-11-09] MEDS ORDERED: FAMOTIDINE/PF 20 MG/2 ML VIAL IV ONE (21:29)
[2019-11-10] MEDS ORDERED: INSULIN HUMULIN R 100 UNIT/ML 3ML ONE ×2 (00:24→06:11)
[2019-11-10] MEDS: SODIUM CHLORIDE 0.9% 1000ML 1,000 ML IV SCH ×3 (04:45→21:51)
[2019-11-10] MEDS: INSULIN HUMULIN R 100 UNIT/ML 3ML SQ SCH ×4 (06:00→18:00)
[2019-11-10] MEDS: FAMOTIDINE/PF 20 MG/2 ML VIAL IV SCH (09:00)
[2019-11-10] MEDS ORDERED: ACETAMINOPHEN 325 MG TAB PO PRN ×2 (09:30)
[2019-11-10] MEDS ORDERED: LACTULOSE 20 GM/30 ML UDCUP PO PRN (09:30)
[2019-11-10] MEDS ORDERED: INSULIN GLARGINE 100 UNITS/ML 10 ML VIAL SQ ONE (13:30)
[2019-11-10] MEDS: INSULIN GLARGINE 100 UNITS/ML 10 ML VIAL SQ SCH ×2 (16:00→21:00)
[2019-11-10] MEDS ORDERED: INSULIN LISPRO 100 UNIT/ML 3ML SQ SCH (17:00)
--- NOTE | 2019-11-10 17:00 | NUR ---
SPOKE TO SISTER THE PHONE FOR [place]- PATIENT LIVES AT [facility] , USES NO DME, IN AMBULATORY AND INDPENDENT BUT DOES FORGET TO TAKE HIS MEDICATION. SEES DR. MARCANO AT ME, SISTER IS WORKING TO GET HIM MORE SUPPORT AT HOME THROUGH COMMUNITY BASED PROGRAM TO HELP JUDY TAKE HIS MEDS DCP WILL BE BACK TO [facility]ISTED LIVING TO FOLLOW WITH ME. SISTER WILL PROVIDE TRANSPORT Addendum: 11/10/19 at 1723 by BRIANA BOWERS RN CM Amended: Links added.
[2019-11-11 04:37] VITALS: BP 176/93; PULSE 83; RESP 18; TEMP 98.3
[2019-11-11] MEDS: SODIUM CHLORIDE 0.9% 1000ML 1,000 ML IV SCH (07:51)
[2019-11-11 08:00] VITALS: BP 145/67; PULSE 75; RESP 19; TEMP 97.6
[2019-11-11] MEDS: FAMOTIDINE/PF 20 MG/2 ML VIAL IV SCH (09:55)
[2019-11-11] MEDS ORDERED: INSULIN GLARGINE 100 UNITS/ML 10 ML VIAL SQ STA (10:09)
[2019-11-11] MEDS ORDERED: INSULIN GLARGINE 100 UNITS/ML 10 ML VIAL SQ ONE (10:45)
[2019-11-11 11:00] VITALS: BP 146/63; PULSE 67; RESP 18; TEMP 99.3
[2019-11-11] MEDS: INSULIN HUMULIN R 100 UNIT/ML 3ML SQ SCH ×6 (12:00→22:00)
[2019-11-11 16:00] VITALS: BP 141/68; PULSE 87; RESP 19; TEMP 97.5
[2019-11-11] MEDS: INSULIN LISPRO 100 UNIT/ML 3ML SQ SCH ×2 (17:00→17:52)
[2019-11-11 20:45] VITALS: BP 158/87; PULSE 94; RESP 18; TEMP 97.7
[2019-11-11] MEDS ORDERED: INSULIN GLARGINE 100 UNITS/ML 10 ML VIAL SQ SCH (21:00)
[2019-11-11 23:25] VITALS: BP 142/76; PULSE 79; RESP 18; TEMP 97.6
[2019-11-12 04:18] VITALS: BP 153/83; PULSE 70; RESP 17; TEMP 97.6
[2019-11-12] MEDS: INSULIN HUMULIN R 100 UNIT/ML 3ML SQ SCH (06:57)
[2019-11-12 08:00] VITALS: BP 148/71; PULSE 81; RESP 19; TEMP 97.7
[2019-11-12] MEDS: FAMOTIDINE/PF 20 MG/2 ML VIAL IV SCH (09:35)
[2019-11-12] MEDS: INSULIN LISPRO 100 UNIT/ML 3ML SQ SCH (09:37)
[2019-11-12 11:00] VITALS: BP 163/83; PULSE 85; RESP 18; TEMP 97
--- NOTE | 2019-11-12 11:30 | NUR ---
CM NOTE CM spoke to patient's sister Nimco [phone] regarding final d/c plan. [facility] pt was pending [facility] home health to be set up by [facility] director water and waste services Miah Fulton. Sister reports she has been assisting pt with medications and food prior to hospitalization. [facility] pt is requiring more assistance and has coordinated with Miah to obtain more services at home. CM explained that plan is for discharge today. Sister asked CM to follow up with Miah in regards to services. CM then called Miah [phone]. [facility] he contacted [facility] with home health and pt will be admitted tomorrow. CM obtained consent from sister Nimco to fax clinical in order to arrange services. Updated nursing and notified to provide discharge teaching to sister as well as patient. Dr. Salamanca informed of above. Aware that home health to admit pt tomorrow and sister Nimco to assist with medications until arranged. Nursing also aware of d/c plan. Nimco confirmed she can mushroom picker pt.
[2019-11-12] MEDS ORDERED: INSULIN LISPRO 100 UNIT/ML 3ML SQ SCH (12:00)
[2019-11-12] MEDS ORDERED: INSULIN GLARGINE 100 UNITS/ML 10 ML VIAL SQ SCH (21:00)
== END 2019-11-12 13:55 | disposition home health service (06) | DRG 639 ==
LOC: EDH 14:34 → EDHIP 20:33 → 4CH 11-11 03:15
PROVIDERS: ADMIT Internal Medicine; ATTEND Internal Medicine
DX: E11.10 Type 2 diabetes mellitus with ketoacidosis without coma (principal); E78.5 Hyperlipidemia, unspecified; F31.9 Bipolar disorder, unspecified; F42.9 Obsessive-compulsive disorder, unspecified; I10 Essential (primary) hypertension; E11.42 Type 2 diabetes mellitus with diabetic polyneuropathy; E86.0 Dehydration; Z20.828 Contact with and (suspected) exposure to other viral communicable diseases; Z79.899 Other long term (current) drug therapy; Z79.82 Long term (current) use of aspirin; Z79.4 Long term (current) use of insulin